=== PATIENT | male | born 1985 | race American Indian/Alaskan Native ===

== ENCOUNTER 2019-05-07 22:30 | Emergency (ER) | payer OTHER ==
[2019-05-07] MEDS ORDERED: IBUPROFEN PO ONE (23:23)
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
[2019-05-08] MEDS ORDERED: PERCOCET 5/325 PO ONE (02:52)
[2019-05-08] MEDS ORDERED: ZOFRAN ODT PO ONE (02:52)
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
[2019-05-08 03:54] VITALS: BP 117/67
== END 2019-05-08 03:53 | disposition home or self-care (01) ==
LOC: ED 22:30
DX: S43.402A Unspecified sprain of left shoulder joint, initial encounter (principal); M62.830 Muscle spasm of back; M62.838 Other muscle spasm; R51 Headache; Z79.899 Other long term (current) drug therapy; V49.49XA Driver injured in collision with other motor vehicles in traffic accident, initial encounter; Y93.89 Activity, other specified; Y92.89 Other specified places as the place of occurrence of the external cause; Y99.8 Other external cause status
CPT/HCPCS: 72040; 72100; Q0162